=== PATIENT | female | born 1965 | race African-American/Black ===

== ENCOUNTER 2023-04-03 13:39 | Emergency (ER) | payer OTHER, SELFPAY ==
--- NOTE | ~2023-04-03 | CT_ITS ---
EXAMINATION: CT abdomen pelvis wo IV con CLINICAL INFORMATION: Reason for Exam r flank pain uti sx? stone COMPARISON: No prior CT available for comparison. TECHNIQUE: Multidetector volumetric imaging was performed from the superior aspect of the liver through the pubic symphysis , noncontrasted study. Sagittal and coronal reformatted images were obtained on the technologist's workstation. This CT examination was performed using dose optimization techniques as appropriate, variously including the following: *Automated exposure control *Adjustment of mA and/or kV according to patient size (this includes techniques or standardized protocols for targeted exams where dose is matched to indication/reason for exam; i.e. extremities or head) *Use of iterative reconstruction technique DLP: 679 mGy-cm FINDINGS: LOWER THORAX: Included lung bases are clear. HEPATOBILIARY: Diffusely hypodense liver suggesting hepatic steatosis. GALLBLADDER: Gallbladder unremarkable. SPLEEN: Spleen is normal in size. PANCREAS: No focal mass or ductal dilatation. STOMACH AND GASTROINTESTINAL TRACT: Stomach is grossly unremarkable. There is no bowel distention or thickening. No CT evidence of appendicitis. ADRENALS: No adrenal nodules. KIDNEYS/URETERS: No hydronephrosis, stones or solid mass lesions. URINARY BLADDER: Partially decompressed. PELVIC VISCERA: Unremarkable PERITONEUM: No free air or fluid. LYMPH NODES: No lymphadenopathy. VASCULAR:Abdominal aorta normal in size, no aneurysm found. BONES, ABDOMINAL WALL AND SOFT TISSUES: Age-appropriate changes of the spine and skeletal system, no destructive osteolytic or osteosclerotic bone lesion found CT/CT abdomen pelvis wo IV con IMPRESSION: * No CT evidence of kidney stones or hydronephrosis. * Diffusely hypodense liver suggesting hepatic steatosis. * No CT explanation for patient's pain symptoms, no evidence of bowel obstruction, no free air or fluid.
[2023-04-03 14:34] VITALS: BP 127/69; PULSE 84; RESP 18; TEMP 36.3; O2SAT 96; BMI 36.5
--- NOTE | 2023-04-03 14:34 | ED.FEMALEGU ---
HPI - Female Genitourinary General Chief complaint: Urogenital-Female <JOCELINE Duenas Last Filed: 04/03/23 14:38> Stated complaint: UTI/ fever <JOCELINE Duenas Last Filed: 04/03/23 14:38> Time Seen by Provider: 04/03/23 16:42 <JOCELINE Duenas Last Filed: 04/03/23 14:38> Source: patient <JOCELINE Cordova Last Filed: 04/03/23 18:05> Mode of arrival: ambulatory <JOCELINE Cordova Last Filed: 04/03/23 18:05> Limitations: no limitations <JOCELINE Cordova Last Filed: 04/03/23 18:05> History of Present Illness HPI Narrative: This is a 57-year-old female without significant medical history presenting to the emergency department with suprapubic abdominal discomfort, urinary frequency, urgency, intermittent dysuria, right-sided flank pain that started a few days ago and has been progressively worsening, patient reach out to her PCP had a urine done, they told her it was infected, started her on Macrobid she has been taking it for 2 days however despite taking antibiotics she reports worsening symptoms. Patient tells me she has been having subjective fevers and chills. Patient denies sick contacts. Tells me this feels like her typical UTI. Patient denies chest pain, shortness of breath, nausea, vomiting, headache, vision changes, dizziness, weakness. <JOCELINE Cordova Last Filed: 04/03/23 18:05> Related Data Home medications: Previous Rx's Medication Instructions Recorded cefuroxime axetil 250 mg tablet 250 mg PO BID 7 days #14 tabs 04/03/23 phenazopyridine 100 mg tablet 200 mg PO TID 2 days #6 tabs 04/03/23 (Pyridium) <JOCELINE Duenas Last Filed: 04/03/23 14:38> Allergies/Adverse reactions: Allergies Allergy/AdvReac Type Severity Reaction Status Date / Time Sulfa (Sulfonamide Allergy Mild Hives, Rash Verified 04/03/23 14:38 Antibiotics) [SULFA(SULFONAMIDE ANTIBIOTICS)] almond Allergy Unknown Swelling Verified 04/03/23 14:38 fake jewelry Allergy Unknown Unknown Verified 04/03/23 14:38 seafood Allergy Unknown Swelling Verified 04/03/23 14:38 fruits Allergy Unknown Swelling Uncoded 01/10/23 11:27 <JOCELINE Duenas - Last Filed: 04/03/23 14:38> Review of Systems Review of Systems: Constitutional : No Weight loss, No Fever, No Chills, No Fatigue, No Malaise ENT/Mouth : No sore throat, No Rhinorrhea Eyes: No Eye Pain, No Swelling, No Redness Cardiovascular : No Chest Pain, No SOB, No Dyspnea on Exertion, No Orthopnea, No Edema, No Palpitations Respiratory : No Cough, No Sputum, No Wheezing Gastrointestinal : No Nausea, No Vomiting, No Diarrhea, No Constipation, + abdominal Pain, No Hematochezia, No Melena Genitourinary : + Dysuria, + Urinary Frequency, No Hematuria, Musculoskeletal : No joint pain, No Myalgias, No Joint Swelling Skin : No Skin Lesions, No rash Neuro : No Weakness, No Numbness, No Dizziness, No Headache Psych : No Anxiety/Panic, No Depression All other systems reviewed and are negative <JOCELINE Cordova - Last Filed: 04/03/23 18:05> Yes all other systems are reviewed and are negative <JOCELINE Cordova - Last Filed: 04/03/23 18:05> [facility] Past Medical History Attestation statement: The following information was validated with the patient. <JOCELINE Cordova - Last Filed: 04/03/23 18:05> Source: old records reviewed and nursing notes reviewed <JOCELINE Cordova - Last Filed: 04/03/23 18:05> Social History Social History: Social History Advance Directives: No Advance Directives Information Provided: No <JOCELINE Duenas - Last Filed: 04/03/23 14:38> Physical Exam Vital Signs: Vital Signs: Last Vital Signs Temp 97.9 F 04/03/23 16:45 Pulse 85 04/03/23 16:45 Resp 18 04/03/23 16:45 BP 134/58 L 04/03/23 16:45 Pulse Ox 96 04/03/23 16:45 O2 Del Method Room Air 04/03/23 16:45 BMI result Body Mass Index 36.5 <JOCELINE Duenas - Last Filed: 04/03/23 14:38> Vital Signs: Last Vital Signs Temp 97.9 F 04/03/23 16:45 Pulse 85 04/03/23 16:45 Resp 18 04/03/23 16:45 BP 134/58 L 04/03/23 16:45 Pulse Ox 96 04/03/23 16:45 O2 Del Method Room Air 04/03/23 16:45 BMI result Body Mass Index 36.5 vss <JOCELINE Cordova - Last Filed: 04/03/23 18:05> Appearance: Alert.? Oriented X3.? No acute distress.? Head: Normocephalic, atraumatic, no step-offs or deformities Eyes: Pupils equal, round and reactive to light.? CVS: Normal heart rate and rhythm.? Pulses normal.? Respiratory: No respiratory distress.? Breath sounds normal.? Abdomen: Soft and diffuse tendreness.? Skin: Skin warm and dry.? Normal skin color.? Normal skin turgor.? Extremities: No lower extremity edema.? No calf ttp. 5/5 strength to bilateral upper and lower extremities Back: No CVA tenderness bilaterally Neuro: Oriented X 3.? No motor deficit.? No sensory deficit. CN 2-12 intact <JOCELINE Cordova - Last Filed: 04/03/23 18:05> Course Course Course Narrative: RME - 57 yo female with recently diagnosed UTI, started on macrobid yesterday by her PCP who presents to the ER for evaluation of new onset nausea, low back pain and chills that started yesterday after starting the abx. No fever or tachycardia in triage. Plan: basic labs, UA <JOCELINE Duenas - Last Filed: 04/03/23 14:38> Reevaluation(s) Reevaluation #1: CT of the abdomen pelvis with no CT evidence of kidney stones or hydronephrosis. Diffusely hypodense liver likely hepatic steatosis. Patient's CBC with slight leukocytosis likely secondary to UTI. Chemistry unremarkable. Patient's bilirubin 1.2 however there is no abdominal tenderness to palpation to right upper quadrant. Beta hCG negative. UA with small amount of leukocyte esterases, no bacteria however patient has UTI symptoms she is currently on Macrobid and does not feel like it is helping would like a different antibiotic will advised her to stop Macrobid and start Ceftin will also send Pyridium for symptomatic relief. Educated on worrisome signs and symptoms and when to return. <JOCELINE Cordova - Last Filed: 04/03/23 18:05> Time: 18:03 <JOCELINE Cordova - Last Filed: 04/03/23 18:05> Medical Decision Making Medical Decision Making [facility] Narrative: 1700 57-year-old female presents with right-sided flank pain and UTI symptoms with subjective fevers and chills has been on Macrobid for 2 days. Physical exam w/ diffuse tenerness. Patient will appearing. Vital signs stable. Concerns for possible pyelo versus obstructing uropathy versus kidney stones versus hydroureter versus cystitis. Unlikely intra-abdominal etiology no signs of acute abdomen. Unlikely that this is ovarian torsion, ruptured ovarian cyst or ectopic . Plan at this time basic labs, urine, CT of the abdomen pelvis <JOCELINE Cordova Last Filed: 04/03/23 18:05> Differential Diagnosis Differential Diagnoses: The differential diagnosis associated with the presentation includes <JOCELINE Cordova Last Filed: 04/03/23 18:05> Concerns for possible pyelo versus obstructing uropathy versus kidney stones versus hydroureter versus cystitis. Unlikely intra-abdominal etiology no signs of acute abdomen. <JOCELINE Cordova - Last Filed: 04/03/23 18:05> Admission/Observation Consideration of admission/observation: Escalation of care including admission/observation considered <JOCELINE Cordova Last Filed: 04/03/23 18:05> Lab Data [facility] Lab Attestation statement: I reviewed the patient's lab results. <JOCELINE Cordova Last Filed: 04/03/23 18:05> Result Diagrams: 04/03/23 15:02 04/03/23 15:02 <JOCELINE Duenas - Last Filed: 04/03/23 14:38> Labs: Lab Results 04/03/23 04/03/23 04/03/23 Range/Units 14:43 15:02 15:02 WBC 14.7 H (4.8-10.8) X10*3/uL RBC 4.99 (4.20-5.50) X10*6/uL Hgb 14.5 (12.0-16.0) g/dl Hct 45.2 (37.0-47.0) % MCV 90.6 (80.0-98.0) fL MCH 29.1 (27.0-33.0) pg MCHC 32.1 (31.0-35.0) g/dl RDW 13.1 (11.0-16.0) % Plt Count 190 (160-400) X10*3/uL MPV 10.5 (9.4-12.3) fL Immature Gran % (Auto) 0.8 H (0.0-0.4) % Neut % (Auto) 78.4 H (45-73) % Lymph % (Auto) 8.4 L (20-40) % [place] % (Auto) 7.8 (2-11) % Eos % (Auto) 3.8 (0-4) % Baso % (Auto) 0.8 (0-2) % Lymph # (Auto) 1.2 (1.2-4.9) X10*3/uL [place] # (Auto) 1.1 (0.1-1.2) X10*3/uL Eos # (Auto) 0.6 H (0.0-0.4) X10*3/uL Baso # (Auto) 0.1 (0.0-0.2) X10*3/uL Abs Immat Gran (auto) 0.12 H (0.00-0.03) X10*3/uL Absolute Neuts (auto) 11.5 H (2.0-8.3) x10*3/uL Absolute Nucleated RBC 0.000 (0.0-0.012) X10*3/uL Nucleated RBC % (auto) 0.0 (0.0-0.2) /100WBC Sodium 142 (135-145) mmol/L Potassium 4.5 (3.3-5.1) mmol/L Chloride 106 (96-108) mmol/L Carbon Dioxide 29 (22-29) mmol/L Anion Gap 12 (12-20) BUN 14 (9-16) mg/dL Creatinine 0.84 (0.5-1.4) mg/dL Estim Creat Clear Calc 75.1 Estimated GFR > 60 Random Glucose 109 (60-115) mg/dL Calcium 9.6 (8.4-10.2) mg/dL Magnesium 2.4 (1.6-2.6) mg/dL Total Bilirubin 1.2 H (0.0-1.0) mg/dL Direct Bilirubin 0.5 (0.0-0.5) mg/dL AST 56 H (5-31) U/L ALT 67 H (0-31) U/L Alkaline Phosphatase 92 (39-117) U/L Total Protein 7.2 (6.5-8.0) g/dL Albumin 4.3 (3.5-5.0) g/dL Beta HCG, Quant < 2 mIU/mL Urine Color Yellow Urine Appearance Clear Urine pH 6.5 (5.0-9.0) Ur Specific [place] <= 1.005 (1.005-1.025) Urine Protein Negative (Neg-Trace) mg/dL Urine Glucose (UA) Negative (Negative) mg/dL Urine Ketones Negative (Negative) mg/dL Urine Blood Negative (Negative) Urine Nitrite Negative (Negative) Ur Leukocyte Esterase Small (1+) H (Negative) Urine RBC 0-2 (0-2) /HPF Urine WBC 11-20 H (0-5) /HPF Ur Squamous Epith Cells 3-5 (0-2) /HPF Urine Bacteria None Seen (None Seen) Hyaline Casts 0-2 (0-2) /LPF <JOCELINE Duenas - Last Filed: 04/03/23 14:38> Lab Results 04/03/23 04/03/23 04/03/23 Range/Units 14:43 15:02 15:02 WBC 14.7 H (4.8-10.8) X10*3/uL RBC 4.99 (4.20-5.50) X10*6/uL Hgb 14.5 (12.0-16.0) g/dl Hct 45.2 (37.0-47.0) % MCV 90.6 (80.0-98.0) fL MCH 29.1 (27.0-33.0) pg MCHC 32.1 (31.0-35.0) g/dl RDW 13.1 (11.0-16.0) % Plt Count 190 (160-400) X10*3/uL MPV 10.5 (9.4-12.3) fL Immature Gran % (Auto) 0.8 H (0.0-0.4) % Neut % (Auto) 78.4 H (45-73) % Lymph % (Auto) 8.4 L (20-40) % [place] % (Auto) 7.8 (2-11) % Eos % (Auto) 3.8 (0-4) % Baso % (Auto) 0.8 (0-2) % Lymph # (Auto) 1.2 (1.2-4.9) X10*3/uL [place] # (Auto) 1.1 (0.1-1.2) X10*3/uL Eos # (Auto) 0.6 H (0.0-0.4) X10*3/uL Baso # (Auto) 0.1 (0.0-0.2) X10*3/uL Abs Immat Gran (auto) 0.12 H (0.00-0.03) X10*3/uL Absolute Neuts (auto) 11.5 H (2.0-8.3) x10*3/uL Absolute Nucleated RBC 0.000 (0.0-0.012) X10*3/uL Nucleated RBC % (auto) 0.0 (0.0-0.2) /100WBC Sodium 142 (135-145) mmol/L Potassium 4.5 (3.3-5.1) mmol/L Chloride 106 (96-108) mmol/L Carbon Dioxide 29 (22-29) mmol/L Anion Gap 12 (12-20) BUN 14 (9-16) mg/dL Creatinine 0.84 (0.5-1.4) mg/dL Estim Creat Clear Calc 75.1 Estimated GFR > 60 Random Glucose 109 (60-115) mg/dL Calcium 9.6 (8.4-10.2) mg/dL Magnesium 2.4 (1.6-2.6) mg/dL Total Bilirubin 1.2 H (0.0-1.0) mg/dL Direct Bilirubin 0.5 (0.0-0.5) mg/dL AST 56 H (5-31) U/L ALT 67 H (0-31) U/L Alkaline Phosphatase 92 (39-117) U/L Total Protein 7.2 (6.5-8.0) g/dL Albumin 4.3 (3.5-5.0) g/dL Beta HCG, Quant < 2 mIU/mL Urine Color Yellow Urine Appearance Clear Urine pH 6.5 (5.0-9.0) Ur Specific [place] <= 1.005 (1.005-1.025) Urine Protein Negative (Neg-Trace) mg/dL Urine Glucose (UA) Negative (Negative) mg/dL Urine Ketones Negative (Negative) mg/dL Urine Blood Negative (Negative) Urine Nitrite Negative (Negative) Ur Leukocyte Esterase Small (1+) H (Negative) Urine RBC 0-2 (0-2) /HPF Urine WBC 11-20 H (0-5) /HPF Ur Squamous Epith Cells 3-5 (0-2) /HPF Urine Bacteria None Seen (None Seen) Hyaline Casts 0-2 (0-2) /LPF <JOCELINE Cordova - Last Filed: 04/03/23 18:05> Core Measures Measure exclusions: not indicated <JOCELINE Cordova - Last Filed: 04/03/23 18:05> Critical Care Time Critical Care Time Critical Care Time: No <JOCELINE Cordova - Last Filed: 04/03/23 18:05> Discharge Plan Discharge Clinical Impression: Cystitis <JOCELINE Duenas - Last Filed: 04/03/23 14:38> Patient Disposition: Home, Self-Care <JOCELINE Duenas - Last Filed: 04/03/23 14:38> Instructions: Urinary Tract Infection in Women (DC) <JOCELINE Duenas - Last Filed: 04/03/23 14:38> Additional Instructions: Take your medications as prescribed. If you were prescribed antibiotics today, it is important that you take your medication to their entirety, do not skip any doses, do not finish them early. Follow-up with your primary care provider this week. Return to the emergency department with new or worsening symptoms. Such as fevers, chills, chest pain, shortness of breath, nausea, vomiting, dizziness, headache, vision changes, lethargy In case of emergency call 911 CT/CT abdomen pelvis wo IV con IMPRESSION: * No CT evidence of kidney stones or hydronephrosis. * Diffusely hypodense liver suggesting hepatic steatosis. * No CT explanation for patient's pain symptoms, no evidence of bowel obstruction, no free air or fluid. <JOCELINE Duenas - Last Filed: 04/03/23 14:38> Prescriptions: New cefuroxime axetil 250 mg tablet 250 mg PO BID 7 Days Qty: 14 0RF phenazopyridine [Pyridium] 100 mg tablet 200 mg PO TID 2 Days Qty: 6 0RF <JOCELINE Duenas - Last Filed: 04/03/23 14:38> Referrals: [facility] [Provider Group] - 1 week Darling Rosales NP [Primary Care Provider] - 2 days <JOCELINE Duenas - Last Filed: 04/03/23 14:38> Stand Alone Forms: Work/School Release <JOCELINE Duenas - Last Filed: 04/03/23 14:38>
[2023-04-03 14:56] LABS: Appearance Urine Clear; Color Urine Yellow; Glucose Urine UA Negative (Negative); Leukocyte Esterase Urine Small (1+) (Negative); Nitrite Urine Negative (Negative); PH 6.5 (5.0-9.0); Specific Gravity - Urine <= 1.005 (1.005-1.025); UMIC TRIGGER UACC YES; Urine Blood Negative (Negative); Urine Ketones Negative (Negative); Urine Protein Negative (Neg-Trace)
[2023-04-03 15:01] LABS: Bacteria Urine None Seen (None Seen); Hyaline Casts Urine 0-2 /LPF (0-2); RBC Urine 0-2 /HPF (0-2); UACC Culture Trigger YES
[2023-04-03 15:07] LABS: MANUAL DIFF FLAG NO
[2023-04-03 15:14] LABS: Basophils Absolute Auto 0.1 X10*3/uL (0.0-0.2); Basophils Percent Auto 0.8 % (0-2); Eosinophils Absolute Auto 0.6 X10*3/uL (0.0-0.4); Eosinophils Percent Auto 3.8 % (0-4); Hematocrit 45.2 % (37.0-47.0); Hemoglobin 14.5 g/dl (12.0-16.0); Imm Gran Abs Auto 0.12 X10*3/uL (0.00-0.03); Imm Gran Pct Auto 0.8 % (0.0-0.4); Lymphocytes Absolute Auto 1.2 X10*3/uL (1.2-4.9); Lymphocytes Percent Auto 8.4 % (20-40); Mean Corpuscular HGB Conc 32.1 g/dl (31.0-35.0); Mean Corpuscular Hemoglobin 29.1 pg (27.0-33.0); Mean Corpuscular Volume 90.6 fL (80.0-98.0); Mean Platelet Volume 10.5 fL (9.4-12.3); Monocytes Absolute Auto 1.1 X10*3/uL (0.1-1.2); Monocytes Percent Auto 7.8 % (2-11); Neutrophils Absolute Auto 11.5 x10*3/uL (2.0-8.3); Neutrophils Percent Auto 78.4 % (45-73); Platelet Count 190 X10*3/uL (160-400); Red Blood Count 4.99 X10*6/uL (4.20-5.50); Red Cell Distribution Width 13.1 % (11.0-16.0); White Blood Count 14.7 X10*3/uL (4.8-10.8)
[2023-04-03 16:23] LABS: Alanine Aminotransferase 67 U/L (0-31); Albumin Level 4.3 g/dL (3.5-5.0); Alkaline Phosphatase 92 U/L (39-117); Anion Gap 12 (12-20); Aspartate Amino Transferase 56 U/L (5-31); Bilirubin Direct 0.5 mg/dL (0.0-0.5); Bilirubin Total 1.2 mg/dL (0.0-1.0); Blood Urea Nitrogen 14 mg/dL (9-16); Calcium 9.6 mg/dL (8.4-10.2); Carbon Dioxide 29 mmol/L (22-29); Chloride 106 mmol/L (96-108); Creatinine Clr Calc Pharmacy 75.1; Estimated Glomerular Filt Rate > 60; Glucose Random 109 mg/dL (60-115); Magnesium 2.4 mg/dL (1.6-2.6); Potassium 4.5 mmol/L (3.3-5.1); Sodium 142 mmol/L (135-145); Total Protein 7.2 g/dL (6.5-8.0)
[2023-04-03 16:45] VITALS: BP 134/58; PULSE 85; RESP 18; TEMP 36.6; O2SAT 96
[2023-04-03 17:50] LABS: HCG Quantitative < 2 mIU/mL
== END 2023-04-03 18:26 | disposition home or self-care (01) ==
PROVIDERS: Physician Assistant; Emergency Provider Emergency Medicine; PCP Nurse Practitioner Family
DX: N39.0 Urinary tract infection, site not specified (principal); R50.9 Fever, unspecified; R30.0 Dysuria; R10.2 Pelvic and perineal pain; R39.15 Urgency of urination; Z79.899 Other long term (current) drug therapy
CPT/HCPCS: 36415; 74176; 80048; 80076; 81001; 83735; 84702; 85025; 87086; 99283; 99284